=== PATIENT | female | born 1965 | race Caucasian/White ===

== ENCOUNTER 2016-10-15 11:56 | Emergency (ER) ==
[2016-10-15] MEDS ORDERED: NS 1,000 ML IV ONE (13:50)
[2016-10-15] MEDS ORDERED: ZOFRAN ODT PO ONE (13:50)
--- NOTE | 2016-10-15 14:00 | PROVIDER DOCUMENTATION ---
HPI-Abdominal Pain/GI Problem - General Chief Complaint: N/V/D Stated Complaint: N/V/D Time Seen by Provider: 10/15/16 13:35 Source: patient Allergies/Adverse Reactions: Patient Allergies Allergy/AdvReac Type Severity Reaction Status Date / Time codeine Allergy Severe ANAPHYLAXIS Verified 10/15/16 13:04 Home Medications: No Home Medications 10/15/16 - History of Present Illness-ABD Nature of Presenting Problems: patient is a 51 y/o F that presents with n/v/d, fever/chills, body aches, and weakness x 5 days. patient was in [place] over the weekend and accidentally had water ( ice cubes from [place]) then developed the symptoms. Had taking immodium which helped the diarrhea. Abdominal Pain Onset Location: reports: generalized abdomen Pain Radiation: reports: no radiation Quality of Pain: reports: aching, cramping Severity in ED: reports: mild, moderate Onset/Duration: reports: abrupt, 5 days ago Timing: reports: still present, constant Activities at Onset: reports: [place] Exposure to sick contacts?: No Modifying Factors: improves with: nothing Associated Symptoms: reports: diarrhea, fatigue, fever/chills, muscle aches, nausea, vomiting, weakness. denies: back/neck pain, chest pain, cough, dizziness, genitourinary problems, shortness of breath Similar Symptoms Previously?: No Recently seen or treated by another doctor?: No Review of Systems - Adult - REVIEW OF SYSTEMS - ADULT Constitutional: reports: chills, fever Eyes: denies: dry eyes, decreased vision, blurred vision, double vision Ears, Nose, Mouth & Throat: denies: ear discharge, ear pain, sinus problem, throat pain, throat swelling Cardiovascular: denies: chest pain, palpitations, syncope Respiratory: denies: cough, shortness of breath, wheezing Gastrointestinal: reports: abdominal pain, diarrhea, nausea, vomiting. denies: difficulty swallowing, frequent heartburn Genitourinary: denies: dysuria, frequency, hematuria, urinary retention Musculoskeletal: reports: muscle aches, muscle weakness Integumentary: reports: no symptoms reported Neurological: denies: dizziness/vertigo, headache/migraines, seizure, syncope Psychiatric: reports: no symptoms reported Endocrine: reports: no symptoms reported Hematologic/Lymphatic: reports: no symptoms reported Allergic/Immunologic: reports: no symptoms reported All Other Systems: Reviewed and Negative Past History - Adult - PAST MEDICAL HISTORY-ADULT Review of Records: reports: Old Records Reviewed, Nursing Assessment Review, Medications Reviewed Genitourinary: reports: kidney stones Endocrine/Immune: reports: anemia - PRIOR SURGERIES/PROCEDURES Surgical/Procedure History: reports: appendectomy, cholecystectomy, BTL, gastric bypass Physical Exam-General - PHYSICAL EXAM-ADULT Initial Vital Signs Reviewed: Yes - CONSTITUTIONAL General Appearance: alert, no apparent distress - EYES Eyes: PERRL/EOMI, pink conjunctivae - HEAD, EARS, NOSE, MOUTH & THROAT HENMT: normocephalic/atraumatic, moist mucous membranes, normal ENT inspection, pharynx normal - NECK Neck: full range of motion, normal inspection - RESPIRATORY Respiratory: lungs clear, normal breath sounds, no respiratory distress, no accessory muscle use - CARDIOVASCULAR Cardiovascular: no edema, no gallop, no murmur - GASTROINTESTINAL (ABDOMEN) Abdominal Exam: normal bowel sounds, non tender, soft, no organomegaly, no pulsatile mass - MUSCULOSKELETAL Back Exam: no CVA tenderness, no vertebral tenderness Extremity: normal range of motion, normal inspection, no pedal edema, normal capillary refill - SKIN Integumentary: normal color, warm/dry - NEUROLOGIC Neurologic: grossly normal, no motor/sensory deficits - PSYCHIATRIC Psych/Mental Status: normal mood/affect, normal thought content, normal thought process, oriented x 3 Progress - PLAN OF CARE/RESULTS Progress/Plan/Lab Results: plan of care-labs, fluids Vital Signs Temp Pulse Resp BP Pulse Ox 10/15/16 15:42 100.5 F H 10/15/16 12:13 99.5 F 100 H 18 124/84 100 codeine Allergy (Severe, Verified 10/15/16 13:04) ANAPHYLAXIS No Home Medications 10/15/16 Laboratory 10/15/16 10/15/16 14:15 14:15 WBC 3.92 L RBC 3.99 L Hgb 11.5 L Hct 35.1 L MCV 88.0 MCH 28.8 MCHC 32.8 L RDW Std Deviation 13.5 Plt Count 225 MPV 10.9 H Immature Gran % (Auto) 0.0 Neut % (Auto) 44.3 Lymph % (Auto) 32.7 [place] % (Auto) 21.9 H Eos % (Auto) 0.8 Baso % (Auto) 0.3 Immature Gran # (Auto) 0.00 Neut # (Auto) 1.74 Lymph # (Auto) 1.28 [place] # (Auto) 0.86 H Eos # (Auto) 0.03 Baso # (Auto) 0.01 Sodium 136 Potassium 3.5 Chloride 101 Carbon Dioxide 21 L Anion Gap 14 BUN 9 Creatinine 0.6 Estimated GFR/1.73 m2 > 60 BUN/Creatinine Ratio 15 Glucose 75 Calculated Osmolality 269 Calcium 8.5 L Total Bilirubin 0.44 AST 13 ALT 10 Alkaline Phosphatase 132 H Total Protein 6.9 Albumin 3.5 Globulin 3.4 Albumin/Globulin Ratio 1.0 Orders Category Date Time Status CBC WITH ELECTRONIC DIFF [HEME] Stat Lab 10/15/16 14:15 Completed CMP [COMPREHENSIVE METABOLIC PANEL] [CHEM] Stat Lab 10/15/16 14:15 Completed 0.9% Sodium Chloride Inj [Ns] 1,000 ml Med 10/15/16 13:50 Discontinued IV 999 mls/hr Ondansetron Odt [Zofran Odt] Med 10/15/16 13:50 Discontinued 8 mg PO NOW ONE pt will be d/c home f/u with pcp, pt was clinically stable and understood results Departure - Departure Time of Disposition Order: 16:21 DIAGNOSIS: Nausea vomiting and diarrhea Disposition: HOME 01 Certified Medical Emergency: Emergent Condition: Stable Additional Instructions: ED Follow Up Instructions: You have been treated by a care provider in the Emergency Department. These instructions are being provided to you so you can have an understanding of how to care for yourself upon discharge. Upon discharge from the Emergency Department, you are responsible for making arrangements for follow-up care by a physician of your choice. Take all prescribed medications as directed. Return to the Emergency Department immediately for any new or worsening symptoms. You may call the Physician Referral phone number at [phone] to obtain a list of Physicians who are taking new patients. Instructions: Nausea, Adult, [id number], Nausea and Vomiting, Food Choices to Help Relieve Diarrhea, Adult Attestation - Scribe Verification/Attestation Scribe:: Joey Chisholm Acting as Scribe for:: Luis Fernando Ac Scribe documention review:: This chart was documented by a scribe and accurately reflects the service the provider performed and the decisions made by the provider. Physician Attestation - Physician Attestation I, the provider, attest to the following statement:: Luis Fernando Ac Physician documentation Attestation:: This documentation recorded by the scribe accurately reflects the service I personally performed and the decisions made by me.
[2016-10-15 14:38] LABS: BASO% 0.3 % (0.0-0.8); EOS# 0.03 X1000 (0.0-0.7); EOS% 0.8 % (0.0-10.0); HEMATOCRIT 35.1 % (37.0-47.0); HEMOGLOBIN 11.5 g/dL (12.0-16.0); LYMPH# 1.28 X1000 (1.2-3.4); LYMPH% 32.7 % (20.5-51.1); MANUAL DIFF NEEDED? NO; MCH 28.8 PG (27-31); MCHC 32.8 g/dL (33-37); MONO# 0.86 X1000 (0.11-0.59); MONO% 21.9 % (1.7-9.3); MPV 10.9 FL (7.4-10.4); NEUT% 44.3 % (42.2-75.2); PLT 225 X1000 (130-400); RBC 3.99 XMIL (4.2-5.4)
[2016-10-15 14:57] LABS: AGAP 14; ALBUMIN 3.5 g/dL (3.5-5.0); ALKALINE PHOSPHATASE 132 U/L (32-104); BUN 9 mg/dL (8-22); CALCIUM 8.5 mg/dL (8.8-10.2); CHLORIDE 101 mmol/L (98-107); COSMO 269; GOT 13 U/L (10-30); GPT 10 U/L (10-36); POTASSIUM 3.5 mmol/L (3.5-5.1); SODIUM 136 mmol/L (136-145); TCO2 21 mmol/L (25-35); TOTAL BILIRUBIN 0.44 mg/dL (0.20-1.00); TOTAL PROTEIN 6.9 g/dL (6.3-8.3)
[2016-10-15 16:38] VITALS: BP 117/69
== END 2016-10-15 16:48 | disposition home or self-care (01) ==
LOC: ED 11:56
DX: R11.2 Nausea with vomiting, unspecified (principal); R19.7 Diarrhea, unspecified; M79.1 Myalgia; R10.84 Generalized abdominal pain; R53.83 Other fatigue; R50.9 Fever, unspecified; M62.81 Muscle weakness (generalized); Z87.442 Personal history of urinary calculi; Z98.84 Bariatric surgery status
CPT/HCPCS: 80053; 85025; 87804; 99282; J7030; S0181